=== PATIENT | female | born 1945 | race Caucasian/White ===

== ENCOUNTER 2022-07-17 10:08 | Emergency (ER) | payer MEDICARE, SELFPAY ==
[2022-07-17] VITALS (7 sets, daily range): BP systolic 143–166; BP diastolic 61–134; PULSE 58–72; RESP 14–19; TEMP 36.7; O2SAT 95–97; BMI 28.3
--- NOTE | 2022-07-17 10:14 | XRR_ITS ---
PROCEDURE INFORMATION: Exam: XR Right Wrist Exam date and time: 07/17/2022 10:54 AM Age: 76 years old Clinical indication: Pain and injury or trauma; Fall; Blunt trauma (contusions or hematomas); Wrist; Right TECHNIQUE: Imaging protocol: Radiologic exam of the right wrist. Views: 3 or more views. COMPARISON: No relevant prior studies available. FINDINGS: Bones/joints: There are degenerative changes along the radial aspect of the wrist joint including the 1st carpometacarpal articulation with some joint space narrowing and subchondral sclerosis. Remaining osseous structures and joint surfaces are intact. There is no fracture, dislocation or malalignment.. Soft tissues: Unremarkable. XR/XR wrist RT min 3V* [id number] IMPRESSION: No acute bony abnormalities.
--- NOTE | 2022-07-17 10:14 | XRR_ITS ---
PROCEDURE INFORMATION: Exam: XR Right Knee Exam date and time: 07/17/2022 10:50 AM Age: 76 years old Clinical indication: Pain and injury or trauma; Fall; Blunt trauma; Knee; Right TECHNIQUE: Imaging protocol: Radiologic exam of the right knee. Views: 3 views. COMPARISON: No relevant prior studies available. FINDINGS: Bones/joints: There are mild degenerative changes involving the medial knee compartment with some joint space narrowing and subchondral sclerosis. There are degenerative changes at the tibiofibular joint space with some flattening of the articular margins and mild marginal spurring. There is a small spur arising from the superior pole of the patella that is also degenerative in nature. There is no fracture, dislocation or malalignment.. Soft tissues: Unremarkable. XR/XR knee RT 3V* [id number] IMPRESSION: No acute bony abnormalities.
--- NOTE | 2022-07-17 10:19 | CT_ITS ---
WS: [id number] CT HEAD NONCONTRAST HISTORY: closed head injury on eliquis TECHNIQUE: Contiguous axial imaging performed through the brain in 2.5 mm imaging. Bone and soft tiss ue windows. Sagittal and coronal reformats reviewed. All CT scans at [facility] use at least one of these dose optimization techniques: automated exposure control; mA and/or kV adjustment per pa tient size (includes targeted exams where dose is matched to clinical indication); or iterative recon struction. DLP: 1007.58 mGy.cm COMPARISON: 11/30/2013 No acute intracranial hemorrhage, midline shift or mass effect. Mild atrophy and small vessel ischemic disease. No prior infarct. Ventricles: Normal size with no hydrocephalus. Paranasal sinuses: As visualized are clear. Mastoid air cells: Well pneumatized. Calvarium and scalp: No skull fracture. Large soft tissue laceration and scalp hematoma centered over the RIGHT orbit and frontal bone. CT/CT head wo con* [id number] IMPRESSION: 1. No acute intracranial hemorrhage or edema. 2. No fracture. 3. Large soft tissue laceration/hematoma centered over the RIGHT orbit and fro ntal bone.
--- NOTE | 2022-07-17 10:20 | ED_ITS ---
HPI - Fall General: Chief Complaint: Fall Stated Complaint: FALLS Time Seen by Provider: 07/17/22 10:14 Source: patient Mode of arrival: ambulatory History of Present Illness: 76-year-old female presents emergency room via EMS. She was at a local business stumbled on a rug on the floor and fell landed on an outstretched right hand on her knee and on her forehead she has a large hematoma along the lateral aspect of the right supraorbital ridge there was no loss of consciousness she is she is able to see without difficulty. She has not had any vomiting or diarrhea she is on Eliquis for atrial fibrillation. She denies any other injury. MD complaint: fall Onset (ago): minute(s) Fall from: standing Fall witnessed: yes, by bystander Place fall occurred: street Loss of consciousness: None Prolonged down time: no Context: tripped/slipped Location of injury: head Location of injury - extremities: Right: hand and knee Associated symptoms-after fall: Denies abdominal pain, chest pain, confusion, difficulty walking, headache(s), hematuria, lightheadedness, neck pain, numbness, short of breath, vertigo or weakness Review of Systems Const: Denies: fever(s), chills, body aches, change in appetite, fatigue or malaise ENMT: Denies: throat pain, ear or mastoid pain, nasal discharge or nasal congestion Card: Denies: chest pain or lightheadedness Resp: Denies: dyspnea, productive cough or non-productive cough GI: Denies: abdominal pain : Denies: hematuria Musc: Denies: neck pain Skin/Breast: Denies: rash or pruritus Neuro: Denies: headache(s), difficulty walking, vertigo or confusion Physical Exam Const: GENERAL APPEARANCE: cooperative and comfortable ORIENTATION/CONSCIOUSNESS: Yes awake, Yes oriented to person, Yes oriented to place and Yes oriented to time HENMT: COMMON NORMALS: normocephalic and hearing grossly normal bilaterally HEAD & SCALP: normocephalic OTHER: Hematoma on the superior orbital ridge on the right. No laceration no bleeding Eye: COMMON NORMALS: Equal, round and reactive pupils present, EOMs intact bilaterally, conjunctivae normal, no scleral icterus, no papilledema and normal visual camp by confrontation GENERAL EYE: appearance normal, both eyes and all related structures and normal light reflex VISUAL ACUITY: Yes acuity normal and Yes visual acuity right eye CONJUNCTIVA: Yes conjunctivae normal PUPIL: Yes Equal, round and reactive pupils present DIRECT OPHTHALMOSCOPY: Yes normal light reflex and Yes no papilledema Resp: COMMON NORMALS: normal respiratory effort, No retractions, No use of accessory muscles and clear to auscultation bilaterally AUSCULTATION: clear to auscultation bilaterally Cardio: COMMON NORMALS: regular rate, regular rhythm and No murmurs present (Cardio) RATE: regular rate RHYTHM: regular rhythm GI: COMMON NORMALS: Soft to palpation and No hepatosplenomegaly present AUSCULTATION: Yes normoactive bowel sounds PALPATION: Yes Soft to palpation, No Tenderness to palpation present (GI), No Guarding due to palpation present (GI) and Yes No hepatosplenomegaly present Extremity: COMMON NORMALS: normal to inspection, capillary refill normal, no clubbing, cyanosis or edema, no calf tenderness and no pedal edema Neuro: SENSORIUM/ORIENTATION: Yes oriented to person, Yes oriented to place and Yes oriented to time Skin: COMMON NORMALS: no rashes or lesions noted GENERAL SKIN EXAM: no rashes or lesions noted Course Vital Signs: Vital signs: Vital Signs Temperature 98.1 F 07/17/22 10:12 Pulse Rate 58 L 07/17/22 13:18 Respiratory Rate 18 07/17/22 13:18 Blood Pressure 153/74 07/17/22 13:18 Pulse Oximetry 97 07/17/22 13:18 Oxygen Delivery Me thod 07/17/22 11:22 MDM - Fall Medical Decision Making Labs and imaging reviewed no acute fractures no intracranial bleed right knee and right hand are normal. Discharge patient home Tdap updated apply topical antibiotic ointment to abrasions as needed follow-up as needed Medical Records I reviewed the patient's medical records. Lab Data I reviewed the patient's lab results. 07/17/22 10:33 Radiology Impressions Knee X-Ray 07/17/22 10:14 IMPRESSION: No acute bony abnormalities. Wrist X-Ray 07/17/22 10:14 IMPRESSION: No acute bony abnormalities. Head CT 07/17/22 10:19 IMPRESSION: 1. No acute intracranial hemorrhage or edema. 2. No fracture. 3. Large soft tissue laceration/hematoma centered over the RIGHT orbit and frontal bone. Laboratory Results WBC 5.0 10^3/uL (4.0-10.0) 07/17/22 10:33 RBC 4.10 10^6/uL (4.1-5.3) 07/17/22 10:33 Hgb 12.0 g/dL (11.5-15.3) 07/17/22 10:33 Hct 38.3 % (37.0-47.0) 07/17/22 10:33 MCV 93.4 fl (81-99) 07/17/22 10:33 MCH 29.3 pg (28.0-34.0) 07/17/22 10:33 MCHC 31.3 g/dL (30.0-36.0) 07/17/22 10:33 RDW 15.2 % (12.1-15.1) H 07/17/22 10:33 Plt Count 193 10^3/cmm (130-400) 07/17/22 10:33 MPV 9.9 fL (7.4-10.4) 07/17/22 10:33 Neut % (Auto) 47.9 % 07/17/22 10:33 Lymph % (Auto) 39.2 % 07/17/22 10:33 [place] % (Auto) 9.5 % 07/17/22 10:33 Eos % (Auto) 2.0 % 07/17/22 10:33 Baso % (Auto) 1.0 % 07/17/22 10:33 Neut # (Auto) 2.38 10^3/uL (1.8-7.7) 07/17/22 10:33 Lymph # (Auto) 2.0 10^3/uL (0.8-4.8) 07/17/22 10:33 [place] # (Auto) 0.5 10^3/uL (0.2-0.9) 07/17/22 10:33 Eos # (Auto) 0.1 10^3/uL (0.0-0.8) 07/17/22 10:33 Baso # (Auto) 0.1 10^3/uL (0.0-0.1) 07/17/22 10:33 Nucleated RBC % (auto) 0 % 07/17/22 10:33 Nucleated RBCs # 0.0 /100WBC 07/17/22 10:33 Discharge Plan Discharge Patient Disposition: Home Clinical Impression: Fall Condition: Stable Prescriptions: New diclofenac sodium 75 mg tablet,delayed release (DR/EC) 75 mg PO Q12H PRN (Reason: pain) Qty: 20 0RF No Action trazodone 50 mg tablet 75 mg PO BEDTIME sotalol 80 mg tablet 80 mg PO DAILY amlodipine 5 mg tablet 5 mg PO DAILY famotidine 20 mg tablet 20 mg PO BID meclizine 25 mg tablet 25 mg PO TID PRN (Reason: Dizziness) metformin 1,000 mg tablet 1,000 mg PO BID pioglitazone 30 mg tablet 30 mg PO DAILY olmesartan 40 mg tablet 40 mg PO DAILY rosuvastatin 40 mg tablet 40 mg PO DAILY Levemir FlexTouch U-100 Insuln 100 unit/mL (3 mL) insulin pen 20 unit SUBCUT DAILY levocetirizine 5 mg tablet 5 mg PO DAILY Eliquis 5 mg tablet 5 mg PO BID Trulicity 1.5 mg/0.5 mL pen injector 1.5 mg SUBCUT Q7D Rx Instructions: on saturday Discharge Orders: Discharge ED (Routine); Ordered 07/17/22 Ordered By: Grant Gomes Referrals: Morena Wills MD [Family Provider] - Discharge Diet: Usual diet Discharge Activity: Increase activity as tolerated Patient Instructions: Opioid Safety, Pain Management Activity Restrictions/Additional Instructions: You are seen today after a fall CT of your head and neck and your plain x-rays are all negative for fracture you have an significant amount of swelling above the right eye this will likely shift and the swelling will settle into the eyelid itself may be difficult for the next few days to open or see out of that eye it recommend applying ice Tylenol or the diclofenac you are prescribed. Recheck with your primary care doctor if not improving. Coding Level of Care Code ED Monument Letterer for Dominic Whaley
--- NOTE | 2022-07-17 10:25 | ECG_ITS ---
[facility] Test Date: 2022-07-17 Pat Name: Perla Watts Department: Room: Gender: Female Customs Compliance Specialist: : 1945 Requested By: Grant Soto Order Number: [id number] Eileen MD: Ebenezer Tapia M.D. Measurements Intervals [place] Rate: 62 P: 0 WI: 0 QRS: -5 QRSD: 96 T: 61 QT: 407 QTc: 416 Interpretive Statements ATRIAL FIBRILLATION LOW QRS VOLTAGE [QRS DEFLECTION < 0.5/1.0 mV IN LIMB/CHEST LEADS] No previous ECG available for comparison Electronically Signed On 07-17-2022 11:52:53 CDT by Ebenezer Tapia M.D. [email or web address]
[2022-07-17 10:38] LABS: Basophils # 0.1 10^3/uL (0.0-0.1); Eosinophils # 0.1 10^3/uL (0.0-0.8); Hematocrit 38.3 % (37.0-47.0); Lymphocytes % 39.2 %; Mean Corpuscular HGB Conc 31.3 g/dL (30.0-36.0); Mean Corpuscular Hemoglobin 29.3 pg (28.0-34.0); Mean Corpuscular Volume 93.4 fl (81-99); Mean Platelet Volume 9.9 fL (7.4-10.4); Monocytes # 0.5 10^3/uL (0.2-0.9); Monocytes % 9.5 %; Neutrophils # 2.38 10^3/uL (1.8-7.7); Neutrophils % 47.9 %; Nucleated Red Blood Cells % 0 %; Platelet Count 193 10^3/cmm (130-400); Red Cell Distribution Width 15.2 % (12.1-15.1)
[2022-07-17] MEDS: tetanus-dipt-pertussis 0.5 mL SDV IM (11:02)
[2022-07-17] MEDS: HYDROcodone-acetaminophen 5-325 mg Tablet 1 TAB PO (11:49)
--- NOTE | 2022-07-25 12:34 | DCPLANNER ---
manager fashion called patient due to no primary care physician - no answer at this time
== END 2022-07-17 13:22 | disposition home or self-care (01) ==
PROVIDERS: Emergency Provider Family Medicine; Family Provider Family Medicine
DX: S00.11XA Contusion of right eyelid and periocular area, initial encounter (principal); W18.09XA Striking against other object with subsequent fall, initial encounter; Y92.512 Supermarket, store or market as the place of occurrence of the external cause; Z23 Encounter for immunization
CPT/HCPCS: 36415; 70450; 73110; 73562; 85025; 90471; 90715; 93005; 99285

== ENCOUNTER → 2024-07-15 12:41 | Outpatient (BNVA) | payer MEDICARE, SELFPAY | PROVIDERS: Family Provider Family Medicine; Visit Provider Dermatology | DX: L82.1 Other seborrheic keratosis (principal); I83.93 Asymptomatic varicose veins of bilateral lower extremities; D23.72 Other benign neoplasm of skin of left lower limb, including hip; D48.5 Neoplasm of uncertain behavior of skin | CPT/HCPCS: 56605; 99203 ==

== ENCOUNTER → 2024-08-25 15:02 | Outpatient (BNVA) | payer MEDICARE, SELFPAY | PROVIDERS: Family Provider Family Medicine; PCP Nurse Practitioner Family; Visit Provider Internal Medicine | DX: I48.91 Unspecified atrial fibrillation (principal); Z79.01 Long term (current) use of anticoagulants; I25.2 Old myocardial infarction; Z87.891 Personal history of nicotine dependence; R07.9 Chest pain, unspecified | CPT/HCPCS: 93005; 99204 ==

== ENCOUNTER → 2025-02-22 11:06 | Outpatient (BNVA) | payer MEDICARE, MEDICAID, SELFPAY | PROVIDERS: Family Provider Family Medicine; PCP Nurse Practitioner Family; Visit Provider Internal Medicine | DX: I48.91 Unspecified atrial fibrillation (principal); I10 Essential (primary) hypertension; Z87.891 Personal history of nicotine dependence | CPT/HCPCS: 99214 ==

== ENCOUNTER 2025-03-12 10:56 | Outpatient (CLI) | payer MEDICARE, MEDICAID, SELFPAY ==
--- NOTE | 2025-03-12 11:15 | USCV_ITS ---
Perla Watts Age: 79 Gender: F : 1945 Exam Date: 03/12/2025 11:17 Ordering Phys: Ebenezer Tapia M.D ([email or web address]) Technologist: Exam Location: [facility] [place] Indication: cp sob BP: 147 / 82 HR: 82 Rhythm: Sinus Technical Quality: Adequate MEASUREMENTS (Male / Female) Normal Values 2D ECHO LV Diastolic Diameter PLAX 4.8 cm 4.2 - 5.9 / 3.9 - 5.3 cm IVS Diastolic Thickness 1.5 cm 0.6 - 1.0 / 0.6 - 0.9 cm IVS Systolic Thickness 2.0 cm LVPW Diastolic Thickness 1.6 cm 0.6 - 1.0 / 0.6 - 0.9 cm LVPW Systolic Thickness 2.1 cm LVOT Diameter 2.1 cm LV Ejection Fraction 2D Teich 59.6 % LV Ejection Fraction MOD 4C 66.0 % LV Ejection Fraction MOD 2C 65.2 % LV Ejection Fraction 2C AL 64.7 % LA Diameter 4.0 cm RA Systolic Volume 4C AL 33.5 ml RA Systolic Volume 4C MOD 32.7 ml Aorta at Sinotubular Diameter 2.5 cm IVC Diameter 1.6 cm M-MODE LA Ao Ratio MM 1.5 MV E Point Septal Separation 1.6 cm AV Cusp Separation MM 2.5 cm DOPPLER AV Peak Velocity 144.0 cm/s LVOT Peak Velocity 77.0 cm/s AV Area Cont Eq vti 2.0 cm squared AV Area Cont Eq pk 1.8 cm squared MV Peak Velocity 131.0 cm/s MV Area PHT 2.8 cm squared Mitral E to A Ratio 1.1 TV Peak Velocity 265.0 cm/s TR Peak Velocity 321.0 cm/s TR Peak Gradient 41.2 mmHg TV Peak E Velocity 156.0 cm/s PV Peak Velocity 120.0 cm/s FINDINGS Left Ventricle Normal left ventricular size and systolic function, EF of 55- 60%. No regional wall motion abnormalities. Moderate left ventricular hypertrophy. Right Ventricle Normal in size and function Right Atrium Normal in size Left Atrium Normal in size IA Septum Grossly normal Mitral Valve Structurally normal mitral valve. Mild mitral regurgitation. Aortic Valve Aortic valve is structurally normal. No significant stenosis or regurgitation. Tricuspid Valve Mild tricuspid regurgitation. RVSP is 40-45 mmHg. This is consistent with mild pulmonary hypertension. Pulmonic Valve Not well visualized Pericardium Normal Aorta Normal in size IVC Appears to be normal CONCLUSIONS LV systolic function is normal with EF of 55-60% Moderate left ventricular hypertrophy. Mild mitral regurgitation. Mild tricuspid regurgitation. Mild pulmonary hypertension Ebenezer Tapia MD (Electronically Signed) Final Date: 27 March 2025 12:32 S
== END 2025-03-12 10:57 | disposition home or self-care (01) ==
LOC: RAD 10:57
PROVIDERS: Family Provider Family Medicine; PCP Nurse Practitioner Family; Visit Provider Internal Medicine
DX: R07.9 Chest pain, unspecified (principal); R06.02 Shortness of breath; I51.7 Cardiomegaly; I34.0 Nonrheumatic mitral (valve) insufficiency; I36.1 Nonrheumatic tricuspid (valve) insufficiency; I27.20 Pulmonary hypertension, unspecified
CPT/HCPCS: 93306